=== PATIENT | female | born 1995 | race Two or more races ===

== ENCOUNTER 2020-08-06 20:46 | Emergency (ER) | payer OTHER ==
--- NOTE | 2020-08-06 21:39 | ER Document Report ---
ED General - General Stated Complaint: POSSIBLE INJURY TO RIGHT BIG TOE Time Seen by Provider: 08/06/20 21:18 Primary Care Provider: [facility] [Provider Group] - Follow up as needed - HPI Notes: Patient is a 25 y/o female with no medical hx who presents with pain to her bilateral great toe nails for the past month. Patient states she noticed a dark discoloration to the area underneath her toe nails bilaterally while getting a pedicure. She states the area has enlarged and the right is worse than the left. She endorses foul-smelling drainage from the right toe as her nail has lifted on the lateral side. She denies pain to the area surrounding the toe nail. She denies swelling or warmth to the toe as well as fever, nausea, and vomiting. She denies any recent injury to her toes and does not wear any tight shoes. She reports getting a pedicure every two weeks. Patient denies tobacco, alcohol and recreational drug use. Past Medical History - General Information source: Patient - Social History Smoking Status: Unknown if Ever Smoked Frequency of alcohol use: None Drug Abuse: None Family History: Reviewed & Not Pertinent Review of Systems - Review of Systems Constitutional: No symptoms reported EENT: No symptoms reported Cardiovascular: No symptoms reported Respiratory: No symptoms reported Gastrointestinal: No symptoms reported Genitourinary: No symptoms reported Female Genitourinary: No symptoms reported Musculoskeletal: See HPI Skin: See HPI Hematologic/Lymphatic: No symptoms reported Neurological/Psychological: No symptoms reported Physical Exam - Vital signs Vitals: Temp Pulse Resp BP Pulse Ox 98.2 F 84 16 135/75 H 100 08/06/20 20:51 08/06/20 20:51 08/06/20 20:51 08/06/20 20:51 08/06/20 20:51 - Notes Notes: PHYSICAL EXAMINATION: GENERAL: Well-appearing, well-nourished and in no acute distress. HEAD: Atraumatic, normocephalic. EYES: sclera anicteric, conjunctiva are normal. ENT: Moist mucous membranes. NECK: Normal range of motion LUNGS: Normal work of breathing HEART: 2+ radial pulses bilaterally EXTREMITIES: Right great toe nail lifting on the lateral side. No paronychia or surrounding erythema or warmth. No tenderness to the tissue surrounding the nail. Unable to assess the left great toe due to gel nail [place]. Palpable DP and PT pulses bilaterally. No warmth or erythema to BLE. No pitting or edema. No cyanosis. NEUROLOGICAL: No focal neurological deficits. Moves all extremities spontaneously and on command. PSYCH: Normal mood, normal affect. SKIN: Warm, Dry, normal turgor, no rashes or lesions noted. Course - Re-evaluation Re-evalutation: Patient is a 25 y/o female who presents with bilateral great toenail pain and discoloration for the past month. She endorses lifting of her right great toenail with foul-smelling drainage. Vital signs are within normal limits. On exam, the proximal portion of the right great toenail is darkly discolored with a point of drainage to the lateral side of the nail as well as lifting noted to that side. Unable to assess left great toenail as it is painted with gel [place]. Based on the patient's presentation and examination, I am more concerned for a fungal infection rather than a subungal hematoma as patient reports foul- smelling drainage and denies wearing tight shoes or injuring her toes. Digital block performed on the great toe and toe nail removed without complication. Patient will be discharged home with a prescription for topical terbinafine. Patient instructed to follow up with her primary care for possible systemic treatment for her left great toe. Return precautions given. Patient understands and is in agreement with the plan. - Vital Signs Vital signs: Temp Pulse Resp BP Pulse Ox 98.2 F 84 16 135/75 H 100 08/06/20 20:51 08/06/20 20:51 08/06/20 20:51 08/06/20 20:51 08/06/20 20:51 Procedures - Nail Trephanation/Removal Right Foot Great toe Time completed: 23:00 Nail Trepanation/Removal Location: Right great toe nail removed Betadine prep applied: No - Shurcleans used Method of Drainage: Other - nail removed Notes: Right great toe thoroughly cleaned with Shur-Clens. Toe anesthetized by digital block with 1% lidocaine. Right great toenail then removed. Pressure applied to nail bed to stop bleeding. Nail bed cleaned once more using Shur-Clens. Non- adhesive dressing applied. Patient tolerated procedure well without complication. Discharge - Discharge Clinical Impression: Onychomycosis Condition: Stable Disposition: HOME, SELF-CARE Additional Instructions: Use the antifungal cream twice daily. Follow up with your primary care provider for continued management and possible systemic antifungals. Fungal Nail Infection You have a fungus growing in your nail. The fungus eats the protein tissue of the nail, making it thick and crumbly. The infection is very difficult to eradicate. Usually, about three months of treatment are required. The large toenail can require as long as a year of treatment. The usual treatment is antifungal cream. They must be used until the infected nail is entirely replaced by a new, strong nail. Sometimes, the nail must be removed to clear up the fungus. Call the doctor if there are signs of bacterial infection -- spreading redness, swelling, pain, or drainage. Prescriptions: Terbinafine HCl [Lamisil At] 30 gm TP BID #1 bottle Forms: Return to Work Referrals: [facility] [Provider Group] - Follow up as needed
[2020-08-06] MEDS ORDERED: LIDOCAINE 1% INJ-PF (10 MG/ML) 30 ML SDV INJ ONE (21:50)
[2020-08-06 23:50] VITALS: BP 106/72
== END 2020-08-06 23:49 | disposition home or self-care (01) ==
LOC: ER 20:46
DX: B35.1 Tinea unguium (principal)
CPT/HCPCS: 99283; 11750; J3490